=== PATIENT | male | born 1955 | race Caucasian/White ===

== ENCOUNTER 2016-06-16 10:10 | Inpatient (IN) | payer MEDICARE ==
[2016-06-16 10:39] LABS: BASOPHIL 0.2 % (0-2); EOSINOPHIL 0.2 % (0-5); HCT 45.2 % (42.0-52.0); HGB 14.6 g/dl (13.2-18.0); LYMPHOCYTE 7.4 % (15-48); MCH 28.5 pg (25.0-31.0); MCHC 32.3 g/dL (32.0-36.0); MCV 88.3 fL (78.0-100.0); MPV 9.9 fL (6.0-9.5); NEUTROPHIL 84.2 % (41-80); PLT 202 K/uL (150-400); RBC 5.12 M/uL (4.70-6.00); RDW 17.2 % (11.5-14.0); WBC 9.6 K/uL (4.0-10.5)
[2016-06-16 10:44] LABS: INR 1.05 (0.9-1.2); PROTHROMBIN TIME 13.3 SECONDS (11.7-14.0); PTT 31.2 SECONDS (23.2-31.4)
[2016-06-16 10:50] LABS: TROPONIN T < 0.010 ng/mL
[2016-06-16 10:51] LABS: CREATININE 1.5 mg/dL (0.7-1.2); POTASSIUM 4.5 mmol/L (3.5-5.1)
[2016-06-16 10:59] LABS: PRO-BNP 6609 pg/mL (0-125)
[2016-06-16 13:00] LABS: BILIRUBIN NEGATIVE (NEGATIVE); BLOOD 3+ Ery/uL (NEGATIVE); CLARITY SLIGHTLY HAZY (CLEAR); COLOR YELLOW (YELLOW); GLUCOSE (U) NORMAL (NORMAL); KETONE (U) NEGATIVE (NEGATIVE); LEUKOCYTES 1+ Leu/uL (NEGATIVE); NITRITE NEGATIVE (NEGATIVE); PROTEIN 1+ mg/dL (NEGATIVE); UROBILINOGEN 0.2 mg/dL (0.2-1.0)
[2016-06-16 13:08] LABS: AMORPHOUS URATES CRYSTALS MODERATE; BACTERIA TRACE
[2016-06-16 18:53] LABS: LACTIC ACID 1.5 mmol/L (0.5-2.2)
[2016-06-16 19:13] LABS: FT4 (FREE T4) 0.889 ng/dL (0.93-1.70); TSH (THYROID STIM HORMONE) 0.446 uIU/mL (0.270-4.200)
[2016-06-16 19:15] LABS: ALBUMIN 3.6 g/dL (3.5-5.0); BILIRUBIN - TOTAL 1.3 mg/dL (0.1-1.0); CREATININE 1.4 mg/dL (0.7-1.2); GLOBULIN (CALCULATION) 2.5 g/dL (2.2-4.2); MAGNESIUM 2.01 mg/dL (1.40-2.10); POTASSIUM 4.6 mmol/L (3.5-5.1); TOTAL PROTEIN 6.1 g/dL (6.4-8.3)
[2016-06-16 20:07] LABS: BILIRUBIN - DIRECT 0.5 mg/dL (0.0-0.2)
[2016-06-17 05:17] LABS: BASOPHIL 0.2 % (0-2); EOSINOPHIL 0 % (0-5); HCT 39.6 % (42.0-52.0); HGB 13.1 g/dl (13.2-18.0); MCH 28.7 pg (25.0-31.0); MCHC 33.1 g/dL (32.0-36.0); MCV 86.7 fL (78.0-100.0); MONOCYTE 6.4 % (0-12); MPV 9.9 fL (6.0-9.5); NEUTROPHIL 88.4 % (41-80); PLT 182 K/uL (150-400); RBC 4.57 M/uL (4.70-6.00); RDW 16.1 % (11.5-14.0); WBC 5.8 K/uL (4.0-10.5)
[2016-06-17 05:34] LABS: ALBUMIN 3.8 g/dL (3.5-5.0); BILIRUBIN - TOTAL 0.8 mg/dL (0.1-1.0); CREATININE 1.4 mg/dL (0.7-1.2); MAGNESIUM 2.16 mg/dL (1.40-2.10); POTASSIUM 4.3 mmol/L (3.5-5.1); TOTAL PROTEIN 5.8 g/dL (6.4-8.3)
== END 2016-06-17 16:40 | disposition other institution (70) | DRG 871 ==
LOC: FER 10:10 → FICU 13:44
PROVIDERS: Emergency Medicine; ADMIT Internal Medicine
PROC: 0BH17EZ Insertion of Endotracheal Airway into Trachea, Via Natural or Artificial Opening (ICD-10-PCS; principal; 2016-06-16)
PROC: 5A1935Z Respiratory Ventilation, Less than 24 Consecutive Hours (ICD-10-PCS; 2016-06-16)
DX: A41.9 Sepsis, unspecified organism (principal); J96.02 Acute respiratory failure with hypercapnia; J96.01 Acute respiratory failure with hypoxia; J10.00 Influenza due to other identified influenza virus with unspecified type of pneumonia; N17.9 Acute kidney failure, unspecified; E87.2 Acidosis; I50.9 Heart failure, unspecified; J44.1 Chronic obstructive pulmonary disease with (acute) exacerbation; J18.9 Pneumonia, unspecified organism; I95.9 Hypotension, unspecified; R65.20 Severe sepsis without septic shock; E66.01 Morbid (severe) obesity due to excess calories; I10 Essential (primary) hypertension; E03.9 Hypothyroidism, unspecified; Z87.891 Personal history of nicotine dependence; G25.81 Restless legs syndrome; Z85.830 Personal history of malignant neoplasm of bone; Z85.3 Personal history of malignant neoplasm of breast; E11.9 Type 2 diabetes mellitus without complications; R35.1 Nocturia
CPT/HCPCS: 31500; 36415; 36600; 71010; 71250; 80048; 80053; 80076; 81001; 82803; 82962; 83605; 83735; 83880; 84439; 84443; 84484; 85025; 85379; 85610; 85730; 87070; 87088; 87184; 87205; 87804; 87899; 92950; 93005; 94002; 94640; 94660; 94664; 94762; 94770; C9113; J0456; J2270; J2543; J2704; J2930